=== PATIENT | female | born 1970 | race Two or more races ===

== ENCOUNTER → 2019-09-18 | Outpatient (CLI) | payer OTHER | END | disposition home or self-care (01) | LOC: RAD 15:18 | DX: M54.5 Low back pain (principal); M17.11 Unilateral primary osteoarthritis, right knee ==

== ENCOUNTER 2019-10-04 11:01 | Outpatient (CLI) | payer OTHER | END 2019-10-04 11:43 | disposition home or self-care (01) | LOC: NUCLEAR 11:01 | DX: I80.11 Phlebitis and thrombophlebitis of right femoral vein (principal) ==

== ENCOUNTER 2019-10-16 14:37 | Outpatient (CLI) | payer OTHER | END 2019-10-16 14:39 | disposition home or self-care (01) | LOC: SONOGRAMA 14:37 | DX: R92.8 Other abnormal and inconclusive findings on diagnostic imaging of breast (principal) ==

== ENCOUNTER 2019-10-30 13:06 | Outpatient (CLI) | payer OTHER | END 2019-10-30 15:56 | disposition home or self-care (01) | LOC: NUCLEAR 13:06 | DX: I26.99 Other pulmonary embolism without acute cor pulmonale (principal) | CPT/HCPCS: 78580; A9540 ==

== ENCOUNTER → 2019-11-02 08:48 | Outpatient (CLI) | payer OTHER | END | disposition home or self-care (01) | LOC: LAB 08:48 | DX: N20.0 Calculus of kidney (principal) ==

== ENCOUNTER 2020-04-13 08:48 | Outpatient (CLI) | payer OTHER | END 2020-04-13 11:24 | disposition home or self-care (01) | LOC: LAB 08:48 | PROVIDERS: ATTEND Internal Medicine Hematology & Oncology | DX: D50.8 Other iron deficiency anemias (principal); I10 Essential (primary) hypertension; D68.312 Antiphospholipid antibody with hemorrhagic disorder; E72.11 Homocystinuria; D51.8 Other vitamin B12 deficiency anemias; E72.12 Methylenetetrahydrofolate reductase deficiency ==

== ENCOUNTER 2020-08-31 07:55 | Outpatient (CLI) | payer OTHER | END 2020-08-31 08:02 | disposition home or self-care (01) | LOC: LAB 07:55 | PROVIDERS: ATTEND Internal Medicine Hematology & Oncology | DX: D50.8 Other iron deficiency anemias (principal); I01.0 Acute rheumatic pericarditis; I10 Essential (primary) hypertension; D51.8 Other vitamin B12 deficiency anemias; E72.11 Homocystinuria; E72.12 Methylenetetrahydrofolate reductase deficiency; D68.51 Activated protein C resistance ==

== ENCOUNTER 2020-11-27 13:58 | Outpatient (CLI) | payer OTHER | END 2020-11-27 14:08 | disposition home or self-care (01) | LOC: SONOGRAMA 13:58 → MAMO-SONO 14:15 | PROVIDERS: ATTEND Internal Medicine Hematology & Oncology | DX: E03.8 Other specified hypothyroidism (principal); D68.61 Antiphospholipid syndrome; E72.12 Methylenetetrahydrofolate reductase deficiency ==

== ENCOUNTER 2021-02-22 07:47 | Outpatient (CLI) | payer OTHER | END 2021-02-22 07:51 | disposition home or self-care (01) | LOC: LAB 07:47 | PROVIDERS: ATTEND Internal Medicine Hematology & Oncology | DX: D68.61 Antiphospholipid syndrome (principal); E72.11 Homocystinuria; E72.12 Methylenetetrahydrofolate reductase deficiency ==